=== PATIENT | male | born 1985 | race Caucasian/White ===

== ENCOUNTER 2018-03-19 18:55 | Emergency (ER) | payer MEDICAID, OTHER ==
[~2018-03-19] VITALS: Ht 188 cm; Wt 95.3 kg
[2018-03-19 19:00] VITALS: BP 161/91
--- OUTSIDE RECORDS SUMMARY | 2018-03-19 19:00 | XMS REPORT | Continuity of Care Document ---
Author Author [facility] Address Unknown Phone Unavailable Allergies There is no data. Medications There is no data. Problems Date Dx Coded Attending Type Code Diagnosis Diagnosed By 05/14/2011 RUTH JENSEN DO 465.9 UPPER RESPIRATORY INFECTION 03/22/2013 RUTH JENSEN DO 466.0 BRONCHITIS, ACUTE Procedures Code Description [place] [address] STREP A (IN-HOUSE) 03/22/2013 Results Test Result Range CULTURE, ANAEROBIC AND AEROBIC - 11/27/17 14:57 CULTURE, ANAEROBIC BACTERIA W/GRAM STAIN SEE NOTE NRG CULTURE, AEROBIC BACTERIA SEE NOTE NRG Encounters ACCT No. Visit Date/Time Discharge Status Pt. Type Provider Facility Loc./Unit Complaint [id number] 03/22/2013 13:48:00 03/22/2013 23:59:59 [place] [id number] 11/27/2017 13:40:00 11/27/2017 23:59:59 CLS Outpatient AUBREE VU APRN [facility] [id number] 11/27/2017 13:40:00 Document Registration [email or web address] 04/02/2013 11:11:48 ACT Document Registration
--- OUTSIDE RECORDS SUMMARY | 2018-03-19 19:00 | XMS REPORT ---
Author Author LORA CANO [facility] Address [address] [place] [address] Care Team Providers Care Postal Clerk Name Role Phone LORA CANO Unavailable PROBLEMS Type Condition ICD9-CM Code EYW55-AT Code Onset Dates Condition Status SNOMED Code Problem Acute upper respiratory infections of unspecified site 465.9 Active 71457333 Problem Acute bronchitis 466.0 Active 29936833 ALLERGIES No Known Allergies ENCOUNTERS Encounter Location Date Diagnosis [facility] [id number] [place] [address] [id number] Nov, Cutaneous abscess of left upper extremity L02.[address] [id number] Nov, Spider bite wound, accidental or unintentional, initial encounter T63.301A and Cutaneous abscess of left upper extremity L02.414 [facility] [id number] [place] [address] [phone] Jul, [facility] [id number] [place] [address] [phone] Jul, [facility] [id number] [place] [address] [id number] May, [facility] [id number] [place] [address] [phone] May, [facility] [id number] [place] [address] [phone] Jan, [facility] [id number] [place] [address] [phone] Jan, [facility] [id number] [place] [address] [phone] Feb, [facility] [address] [phone] Feb, [facility] [address] [id number] [place] [phone] Apr, IMMUNIZATIONS No Known Immunizations SOCIAL HISTORY Never Assessed REASON FOR VISIT Abscess f/u left forearm. Jalen LAFLEUR PLAN OF CARE Activity Details Follow Up prn Reason: VITAL SIGNS Height 73 in 2017-11-30 Weight 202 lbs 2017-11-30 Temperature 96.9 degrees Fahrenheit 2017-11-30 Heart Rate 90 bpm 2017-11-30 Respiratory Rate 18 2017-11-30 BMI 26.65 kg/m2 2017-11-30 Blood pressure systolic 140 mmHg 2017-11-30 Blood pressure diastolic 80 mmHg 2017-11-30 MEDICATIONS Medication Instructions Dosage Frequency Start Date End Date Duration Status Albuterol Sulfate 90 mcg/actuation 2 puffs by Inhalation route every 4-6 hours as needed PRN cough or wheezing Feb, Not-Taking Ibuprofen 800 MG Orally Three times a day as needed 1 tablet with food or milk as needed Nov, Active Dapsone 100 mg Orally Once a day 1 tablet 24h Nov, Nov, Active Bactrim DS 800-160 MG Orally Twice a day 1 tablet 12h Nov,Nov Active RESULTS No Results PROCEDURES No Known procedures INSTRUCTIONS MEDICATIONS ADMINISTERED No Known Medications MEDICAL (GENERAL) HISTORY Type Description Date Medical History Hx of MRSA
[2018-03-19] MEDS ORDERED: VANCOMYCIN INJECTION 1,500 MG in NS IV 500 ML 500 ML IV SCH (19:15)
[2018-03-19] MEDS ORDERED: HYDROcodone/APAP 5 MG/325 MG (LORTAB) TAB PO ONE (19:15)
[2018-03-19] MEDS ORDERED: cefTRIAXone FOR IV USE 1,000 MG in NS (IVPB) 50 ML IV ONE (19:15)
[2018-03-19] MEDS ORDERED: SULF-222 (19:20)
--- NOTE | 2018-03-19 19:29 | ED Upper Extremity ---
General Stated Complaint: FINGER LACERACTION Source: patient Exam Limitations: no limitations History of Present Illness Date Seen by Provider: Mar 19, 2018 Time Seen by Provider: 19:12 Initial Comments To ER per private vehicle with reports of a right pointer finger pain. He states that on Thursday of this past week he got a splinter into the right pointer finger. He was then seen at [facility] last night, received an injection of antibiotics and something for pain, had a nerve block done on his finger and then incision and drainage. He is unsure whether or not they got any pus out of this. They gave him Bactrim and Ultram, he does use the Ultram and states that the swelling has increased. He then went back to [facility] today and states "they had a new jus there, I got frustrated so I just left". Denies fevers or chills. He reports pain traveling from the pointer finger all the way up to the axilla. Onset: just prior to arrival Severity: moderate Pain/Injury Location: right 2nd finger Method of Injury: other (splinter) Modifying Factors: Worse With Movement Allergies and Home Medications Allergies Coded Allergies: No Known Drug Allergies (Unverified , 03/19/18) Patient Home Medication List Home Medication List Reviewed: Yes Review of Systems Constitutional: see HPI; No chills, No fever EENTM: see HPI Respiratory: no symptoms reported Cardiovascular: no symptoms reported Genitourinary: no symptoms reported Musculoskeletal: see HPI Skin: see HPI Psychiatric/Neurological: No Symptoms Reported Past [place]-Wckxfc-Sextde Hx Patient Social History Recent Foreign Travel: No Contact w/Someone Who Travel: No Physical Exam Vital Signs Vital Signs - First Documented 03/19/18 19:00 Temp 98.2 Pulse 90 Resp 18 B/P (MAP) 161/91 (114) Pulse Ox 99 O2 Delivery Room Air Capillary Refill : Height, Weight, BMI Height: '" Weight: lbs. oz. kg; BMI Method: General Appearance: WD/WN, no apparent distress HEENT: PERRL/EOMI, normal ENT inspection Respiratory: no respiratory distress, no accessory muscle use Shoulder: normal inspection, non-tender Elbow/Forearm: normal inspection, non-tender Wrist: Yes normal inspection, Yes non-tender Hand: Right, limited ROM (DrRae there is circumferential swelling and erythema about the proximal phalanx right pointer finger. Over the palmar surface there is a 0.5 cm open area which I would presume is from the incision last night. There is some swelling proximal to this to the mid metacarpal. There is no visualized lymphangitis. There are no palpable axillary lymph nodes though he does report significant tenderness to the right axilla.) Neurologic/Psychiatric: alert, oriented x 3, other (agitated) Skin: normal color, warm/dry Progress/Results/Core Measures Results/Orders Lab Results Laboratory Tests Test 03/19/18 19:25 Range/Units White Blood Count 14.5 H 4.3-11.0 10^3/uL Red Blood Count 4.69 4.35-5.85 10^6/uL Hemoglobin 14.3 13.3-17.7 G/DL Hematocrit 40 40-54 % Mean Corpuscular Volume 86 80-99 FL Mean Corpuscular Hemoglobin 31 25-34 PG Mean Corpuscular Hemoglobin Concent 35 32-36 G/DL Red Cell Distribution Width 12.7 10.0-14.5 % Platelet Count 265 130-400 10^3/uL Mean Platelet Volume 10.6 H 7.4-10.4 FL Neutrophils (%) (Auto) 76 H 42-75 % Lymphocytes (%) (Auto) 13 12-44 % Monocytes (%) (Auto) 10 0-12 % Eosinophils (%) (Auto) 1 0-10 % Basophils (%) (Auto) 0 0-10 % Neutrophils # (Auto) 11.0 H 1.8-7.8 X 10^3 Lymphocytes # (Auto) 1.8 1.0-4.0 X 10^3 Monocytes # (Auto) 1.4 H 0.0-1.0 X 10^3 Eosinophils # (Auto) 0.2 0.0-0.3 10^3/uL Basophils # (Auto) 0.1 0.0-0.1 10^3/uL Neutrophils % (Manual) 75 % Lymphocytes % (Manual) 17 % Monocytes % (Manual) 5 % Eosinophils % (Manual) 0 % Basophils % (Manual) 0 % Band Neutrophils 3 % Blood Morphology Comment NORMAL Sodium Level 138 135-145 MMOL/L Potassium Level 3.6 3.6-5.0 MMOL/L Chloride Level 106 98-107 MMOL/L Carbon Dioxide Level 21 21-32 MMOL/L Anion Gap 11 5-14 MMOL/L Blood Urea Nitrogen 15 7-18 MG/DL Creatinine 1.08 0.60-1.30 MG/DL Estimat Glomerular Filtration Rate > 60 BUN/Creatinine Ratio 14 Glucose Level 104 70-105 MG/DL Calcium Level 9.2 8.5-10.1 MG/DL Corrected Calcium 9.0 8.5-10.1 MG/DL Total Bilirubin 0.6 0.1-1.0 MG/DL Aspartate Amino Transf (AST/SGOT) 45 H 5-34 U/L Alanine Aminotransferase (ALT/SGPT) 34 0-55 U/L Alkaline Phosphatase 84 40-136 U/L Total Protein 7.4 6.4-8.2 GM/DL Albumin 4.3 3.2-4.5 GM/DL My Orders Orders - NAM KRISHNAMURTHY APRN Cbc With Automated Diff (03/19/18 19:05) Comprehensive Metabolic Panel (03/19/18 19:05) Iv Heplock-Insert (Order) (03/19/18 19:05) Wound Culture (03/19/18 19:05) Blood Culture (03/19/18 19:05) Hydrocodone/Apap 5/325 Tablet (Lortab 5 (03/19/18 19:15) Ceftriaxone For Iv Use (Rocephin For I (03/19/18 19:15) Vancomycin Injection (Vancomycin Injecti (03/19/18 19:15) Manual Differential (03/19/18 19:25) Meropenem (Merrem 1000 Mg) (03/19/18 19:45) Lidocaine 2% Injection 20 Ml (Xylocaine (03/19/18 19:45) Medications Given in ED Vital Signs/I&O 03/20/18 00:00 Intake Total 4 ml Balance 4 ml Departure Communication (Admissions) Patient initially refused blood draw that he would agree to an IV start for antibiotics. After much discussion I advised him that he really needed blood work done to evaluate white blood cells and kidney function prior to initiating antibiotics. He is very reluctant at first but after conversation with his girlfriend it boils down to she just started using methamphetamine again and does not want me to run a drug screen, he's recenlty started using methamphetamine again and states "im not proud of it". I advised him that running blood work for drug evaluation would not change my plan of care so there is no point in running drug screen. He also states that he would be unwilling to stay in the hospital for admission but would be willing to come back for outpatient antibiotics twice a day as he had offered to him earlier today at [facility] before he left. I then spoke with JOSE Fitzgerald at [facility] who agrees to write orders for outpatient antibiotics twice a day with the IV to be removed in between dosing if the patient is agreeable to these conditions. 2004- meropenem had been started for about 2 minutes, I was going to do incision and drainage of the finger with a nerve block. Patient states "man I'm sorry I was such a douche to you guys earlier" and I responded that it's okay, I understood that he told me he was ashamed of the methamphetamine use but that does not affect the care that he needs here in the emergency room for his finger infection. He then became irate and states "take that shit out of me!" Pointing to his IV and "I aint letting you fucking cut on on me!" . IV was removed, meropenem was stopped and patient left in a haste slamming doors on his way out. Impression Primary Impression: Cellulitis of finger Qualified Codes: L03.011 - Cellulitis of right finger Additional Impression: Outbursts of explosive behavior Disposition: 07 AGAINST MEDICAL ADVICE Condition: Against Medical Advice Departure-Patient Inst. Referrals: NO,LOCAL PHYSICIAN (PCP/Family) Primary Care Physician NAM KRISHNAMURTHY APRN Mar 19, 2018 19:29
[2018-03-19 19:36] LABS: BASOPHILS # (AUTO) 0.1 10^3/uL (0.0-0.1); BASOPHILS % (AUTO) 0 % (0-10); EOSINOPHILS # (AUTO) 0.2 10^3/uL (0.0-0.3); EOSINOPHILS % (AUTO) 1 % (0-10); HEMATOCRIT 40 % (40-54); HEMOGLOBIN 14.3 G/DL (13.3-17.7); LYMPHOCYTES # (AUTO) 1.8 X 10^3 (1.0-4.0); LYMPHOCYTES % (AUTO) 13 % (12-44); MEAN CORPUSCULAR HEMOGLOBIN 31 PG (25-34); MEAN CORPUSCULAR HGB CONC 35 G/DL (32-36); MEAN CORPUSCULAR VOLUME 86 FL (80-99); MEAN PLATELET VOLUME 10.6 FL (7.4-10.4); MONOCYTES # (AUTO) 1.4 X 10^3 (0.0-1.0); MONOCYTES % (AUTO) 10 % (0-12); NEUTROPHILS % (AUTO) 76 % (42-75); PLATELET COUNT 265 10^3/uL (130-400); RED BLOOD COUNT 4.69 10^6/uL (4.35-5.85); RED CELL DISTRIBUTION WIDTH 12.7 % (10.0-14.5); WHITE BLOOD COUNT 14.5 10^3/uL (4.3-11.0)
[2018-03-19] MEDS ORDERED: MEROPENEM 1,000 MG in NS (IVPB) 100 ML IV ONE (19:45)
[2018-03-19] MEDS ORDERED: LIDOCAINE 2% 20 ML (XYLOCAINE) VIAL INJ ONE (19:45)
[2018-03-19 19:55] LABS: BAND NEUTROPHILS 3 %; BASOPHILS % (MANUAL) 0 %; EOSINOPHILS % (MANUAL) 0 %; LYMPHOCYTES % (MANUAL) 17 %; MONOCYTES % (MANUAL) 5 %; NEUTROPHILS % (MANUAL) 75 %; RBC MORPH NORMAL
[2018-03-19 20:09] LABS: ALANINE AMINOTRANSFERASE 34 U/L (0-55); ALBUMIN 4.3 GM/DL (3.2-4.5); ALKALINE PHOSPHATASE 84 U/L (40-136); BILIRUBIN,TOTAL 0.6 MG/DL (0.1-1.0); BUN/CREATININE RATIO 14; CALCIUM 9.2 MG/DL (8.5-10.1); CARBON DIOXIDE 21 MMOL/L (21-32); CHLORIDE 106 MMOL/L (98-107); CREATININE SERUM 1.08 MG/DL (0.60-1.30); GFR ESTIMATED > 60; GLUCOSE 104 MG/DL (70-105); POTASSIUM 3.6 MMOL/L (3.6-5.0); SODIUM 138 MMOL/L (135-145); TOTAL PROTEIN 7.4 GM/DL (6.4-8.2)
== END 2018-03-19 20:03 | disposition left against medical advice (07) ==
LOC: EDUNIT# 18:55 → ER 18:56
DX: L03.011 Cellulitis of right finger (principal); S61.210D Laceration without foreign body of right index finger without damage to nail, subsequent encounter; R45.4 Irritability and anger; W45.8XXD Other foreign body or object entering through skin, subsequent encounter
CPT/HCPCS: 36415; 80053; 85007; 85027; 87040; 87070; 87077; 87186; 87205

== ENCOUNTER 2018-04-27 20:37 | Emergency (ER) | payer MEDICAID ==
[~2018-04-27] VITALS: Ht 188 cm; Wt 90.7 kg
[~2018-04-27 20:37] MED LIST: SULF-222
--- OUTSIDE RECORDS SUMMARY | 2018-04-27 20:43 | XMS REPORT ---
Author Author MANISH CHAN Organization [facility] Address [address] [place] [address] Care Team Providers Care Information Security Officer Name Role Phone MANISH CHAN Unavailable PROBLEMS Type Condition ICD9-CM Code UER90-TX Code Onset Dates Condition Status SNOMED Code Problem Acute upper respiratory infections of unspecified site 465.9 Active 42048433 Problem Acute bronchitis 466.0 Active 31029085 ALLERGIES No Information ENCOUNTERS Encounter Location Date Diagnosis [facility] [id number] [place] [phone] Feb, [facility] [address] [id number] Nov, Cutaneous abscess of left upper extremity L02.414 [facility] [address] [id number] Nov, Spider bite wound, accidental or unintentional, initial encounter T63.301A and Cutaneous abscess of left upper extremity L02.414 [facility] [id number] [place] [address] [phone] Jul, [facility] [id number] [place] [address] [phone] Jul, [facility] [id number] [place] [address] [phone] May, [facility] [id number] [place] [address] [phone] May, [facility] [id number] [place] [address] [phone] Jan, [facility] [id number] [place] [address] [phone] Jan, [facility] [address] [id number] Feb, [facility] [address] [facility] [id number] [place] [phone] Feb, [facility] [address] [facility] [id number] [phone] Apr, IMMUNIZATIONS No Known Immunizations SOCIAL HISTORY Never Assessed REASON FOR VISIT PLAN OF CARE VITAL SIGNS MEDICATIONS Unknown Medications RESULTS No Results PROCEDURES No Known procedures INSTRUCTIONS MEDICATIONS ADMINISTERED No Known Medications MEDICAL (GENERAL) HISTORY Type Description Date Medical History Hx of MRSA
--- OUTSIDE RECORDS SUMMARY | 2018-04-27 20:43 | XMS REPORT | Continuity of Care Document ---
Author Author [facility] Address Unknown Phone Unavailable Allergies Active Description Code Type Severity Reaction Onset Reported/Identified Relationship to Patient Clinical Status Yes NO KNOWN DRUG ALLERGIES UNKNOWN NO KNOWN DRUG ALLERG Yes No Known Drug Allergies [id number] Drug Allergy Unknown N/A 03/19/2018 Medications Medication Packaging Start Date Stop Date Route Dosage Sig KETOROLAC VIAL INJ 30 MG/CC (TORADOL VIAL) MG 03/18/2018 03/18/2018 ONCE&2052 CEFTRIAXONE INJ 1 GM (ROCEPHIN) GM 03/18/2018 03/18/2018 ONCE&2052 TRAMADOL PAIN PACK TAB 50 MG (ULTRAM PAIN PACK) MG 03/18/2018 03/18/2018 ONCE&2117 KETOROLAC VIAL INJ 30 MG/CC (TORADOL VIAL) MG 03/19/2018 03/19/2018 PRN ONCE PROMETHAZINE VIAL INJ 25 MG/CC (PHENERGAN VIAL) MG 03/20/2018 03/20/2018 PRN ONCE MEPERIDINE 50MG TAB 50 MG (DEMEROL 50MG) MG 03/20/2018 03/20/2018 PRN ONCE NORMAL SALINE 250CC IV BAG INJ 0.9 % (NS 250CC IV BAG) ml 03/20/2018 03/20/2018 ONCE&0943 NORMAL SALINE 250CC IV BAG INJ 0.9 % (NS 250CC IV BAG) ml 03/20/2018 03/20/2018 ONCE&1910 Problems Date Dx Coded Attending Type Code Diagnosis Diagnosed By 05/14/2011 RUTH JESNEN DO 465.9 UPPER RESPIRATORY INFECTION 03/22/2013 RUTH JENSEN DO 466.0 BRONCHITIS, ACUTE 03/18/2018 Bria Evans A 681.00 CELLULITIS AND ABSCESS OF FINGER, UNSPECIFIED 03/18/2018 Bria Evans A A L03.011 CELLULITIS OF RIGHT FINGER 03/19/2018 Amilcar Chand 681.00 CELLULITIS AND ABSCESS OF FINGER, UNSPECIFIED 03/19/2018 Amilcar Chand A L03.011 CELLULITIS OF RIGHT FINGER 03/19/2018 NAM KRISHNAMURTHY APRN Ot L03.011 CELLULITIS OF RIGHT FINGER 03/19/2018 NAM KRISHNAMURTHY APRN Ot R45.4 IRRITABILITY AND ANGER 03/19/2018 NAM KRISHNAMURTHY APRN Ot S61.210D LACERATION W/O FB OF R IDX FNGR W/O NICOLAS 03/19/2018 NAM KRISHNAMURTHY APRN Ot W45.8XXD OTH FOREIGN BODY OR OBJECT ENTERING THRO 03/20/2018 Panda Obrien W 681.00 CELLULITIS AND ABSCESS OF FINGER, UNSPECIFIED 03/20/2018 Panda Obrien W L02.519 CUTANEOUS ABSCESS OF UNSPECIFIED HAND 03/20/2018 Panda Obrien W 041.12 METHICILLIN RESISTANT STAPHYLOCOCCUS AUREUS INFECTION IN CONDITIONS CLASSIFIED ELSEWHERE AND OF UNSPECIFIED SITE 03/20/2018 Panda Obrien A 681.00 CELLULITIS AND ABSCESS OF FINGER, UNSPECIFIED 03/20/2018 Panda Obrien W B95.62 METHICILLIN RESIS STAPH INFCT CAUSING DISEASES CLASSD ELSWHR 03/20/2018 Panda Obrien A L02.511 CUTANEOUS ABSCESS OF RIGHT HAND 03/20/2018 Tima Obrienlas A 681.00 CELLULITIS AND ABSCESS OF FINGER, UNSPECIFIED 03/20/2018 Panda Obrien A L02.511 CUTANEOUS ABSCESS OF RIGHT HAND 03/20/2018 Tima Obrienlas A 681.00 CELLULITIS AND ABSCESS OF FINGER, UNSPECIFIED 03/20/2018 Panda Obrien A L02.511 CUTANEOUS ABSCESS OF RIGHT HAND 03/22/2018 NAM KRISHNAMURTHY APRN Ot L03.011 CELLULITIS OF RIGHT FINGER 03/22/2018 NAM KRISHNAMURTHY APRN Ot R45.4 IRRITABILITY AND ANGER 03/22/2018 NAM KRISHNAMURTHY APRN Ot S61.210D LACERATION W/O FB OF R IDX FNGR W/O NICOLAS 03/22/2018 NAM KRISHNAMURTHY APRN Ot W45.8XXD OTH FOREIGN BODY OR OBJECT ENTERING THRO 03/22/2018 MARCO GARDNER A 681.00 CELLULITIS AND ABSCESS OF FINGER, UNSPECIFIED 03/22/2018 MARCO GARDNER L02.511 CUTANEOUS ABSCESS OF RIGHT HAND Procedures Code Description [place] [address] STREP A (IN-HOUSE) 03/22/2013 Results Test Result Range CULTURE, ANAEROBIC AND AEROBIC - 11/27/17 14:57 CULTURE, ANAEROBIC BACTERIA W/GRAM STAIN SEE NOTE NRG CULTURE, AEROBIC BACTERIA SEE NOTE NRG Gram stain microscopy - 03/19/18 19:02 Gram stain microscopy No bacteria seen NRG Bacteria identification in wound by culture - 03/19/18 19:02 Bacteria identification in wound by culture [id number] NRG FREE TEXT EXTERNAL RML SENT SENSITIVITY REPORT 03/22 11:05 NRG QUANTITY OF GROWTH Rare NRG FREE TEXT ENTRY 2 FINAL REPORT 03/23/18 09:05 NRG RML Sensitivity Panel - 03/19/18 19:02 Oxacillin susceptibility test by minimum inhibitory concentration R NRG Clindamycin susceptibility test by minimum inhibitory concentration <= NRG Erythromycin susceptibility test by minimum inhibitory concentration > NRG Trimethoprim/sulfamethoxazole susceptibility test by minimum inhibitoryconcentration S NRG Vancomycin susceptibility test by minimum inhibitory concentration 1 NRG Levofloxacin susceptibility test by minimum inhibitory concentration <= NRG Rifampin susceptibility test by minimum inhibitory concentration <= NRG Cefazolin susceptibility test by minimum inhibitory concentration > NRG Linezolid susceptibility test by minimum inhibitory concentration < = NRG Penicillin G susceptibility test by minimum inhibitory concentration > NRG Minocycline susc LIZETH <= NRG Complete blood count (CBC) with automated white blood cell (WBC) differential - 03/19/18 19:25 Blood leukocytes automated count (number/volume) 14.5 10*3/uL 4.3-11.0 Blood erythrocytes automated count (number/volume) 4.69 10*6/uL 4.35-5.85 Venous blood hemoglobin measurement (mass/volume) 14.3 g/dL 13.3-17.7 Blood hematocrit (volume fraction) 40 % 40-54 Automated erythrocyte mean corpuscular volume 86 [foz_us] 80-99 Automated erythrocyte mean corpuscular hemoglobin (mass per erythrocyte) 31 pg 25-34 Automated erythrocyte mean corpuscular hemoglobin concentration measurement ( mass/volume) 35 g/dL 32-36 Automated erythrocyte distribution width ratio 12.7 % 10.0-14.5 Automated blood platelet count (count/volume) 265 10*3/uL 130-400 Automated blood platelet mean volume measurement 10.6 [foz_us] 7.4-10.4 Automated blood neutrophils/100 leukocytes 76 % 42-75 Automated blood lymphocytes/100 leukocytes 13 % 12-44 Blood monocytes/100 leukocytes 10 % 0-12 Automated blood eosinophils/100 leukocytes 1 % 0-10 Automated blood basophils/100 leukocytes 0 % 0-10 Blood neutrophils automated count (number/volume) 11.0 10*3 1.8-7.8 Blood lymphocytes automated count (number/volume) 1.8 10*3 1.0-4.0 Blood monocytes automated count (number/volume) 1.4 10*3 0.0-1.0 Automated eosinophil count 0.2 10*3/uL 0.0-0.3 Automated blood basophil count (count/volume) 0.1 10*3/uL 0.0-0.1 Blood manual differential performed detection - 03/19/18 19:25 Blood monocytes/100 leukocytes 5 % NRG Manual blood segmented neutrophils/100 leukocytes 75 % NRG Blood band neutrophils/100 leukocytes 3 % NRG Manual blood lymphocytes/100 leukocytes 17 % NRG Manual eosinophils/100 leukocytes in nose 0 % NRG Manual blood basophils/100 leukocytes 0 % NRG Blood erythrocyte morphology finding identification NORMAL NR Comprehensive metabolic panel - 03/19/18 19:25 Serum or plasma sodium measurement (moles/volume) 138 mmol/L 135-145 Serum or plasma potassium measurement (moles/volume) 3.6 mmol/L 3.6-5.0 Serum or plasma chloride measurement (moles/volume) 106 mmol/L 98-107 Carbon dioxide 21 mmol/L 21-32 Serum or plasma anion gap determination (moles/volume) 11 mmol/L 5-14 Serum or plasma urea nitrogen measurement (mass/volume) 15 mg/dL 7-18 Serum or plasma creatinine measurement (mass/volume) 1.08 mg/dL 0.60-1.30 Serum or plasma urea nitrogen/creatinine mass ratio 14 NRG Serum or plasma creatinine measurement with calculation of estimated glomerular filtration rate > NRG Serum or plasma glucose measurement (mass/volume) 104 mg/dL 70-105 Serum or plasma calcium measurement (mass/volume) 9.2 mg/dL 8.5-10.1 Serum or plasma total bilirubin measurement (mass/volume) 0.6 mg/dL 0.1-1.0 Serum or plasma alkaline phosphatase measurement (enzymatic activity/volume) 84 U/L 40-136 Serum or plasma aspartate aminotransferase measurement (enzymatic activity/ volume) 45 U/L 5-34 Serum or plasma alanine aminotransferase measurement (enzymatic activity/volume ) 34 U/L 0-55 Serum or plasma protein measurement (mass/volume) 7.4 g/dL 6.4-8.2 Serum or plasma albumin measurement (mass/volume) 4.3 g/dL 3.2-4.5 CALCIUM CORRECTED 9.0 mg/dL 8.5-10.1 Bacterial blood culture - 03/19/18 19:25 Bacterial blood culture NG NRG Bacterial blood culture - 03/19/18 19:41 Bacterial blood culture NG NRG CBC with Auto Diff - 03/19/18 23:45 Baso% 0.30 % 0.00-2.50 Eos 0.4 K/uL 0.0-0.7 Eos% 2.3 % 0.0-7.0 Hct 41.5 % 42.0-52.0 Hgb 14.4 g/dL 14.0-17.0 Lym 1.75 K/uL 0.60-3.40 Lym% 10.1 % 10.0-50.0 MCH 30.5 pg 27.0-31.2 MCHC 34.7 g/dL 32.0-36.0 MCV 87.9 fL 80.0-97.0 [place]% 10.6 % 0.0-12.0 MPV 10.5 fL 7.4-10.0 [place]% 76.7 % 37.0-80.0 Plt 271 K/uL 150-400 RBC 4.72 M/uL 4.20-5.40 RDW 12.5 % 11.6-14.8 WBC 17.25 K/uL 5.00-10.00 [place] 13.21 K/uL 2.00-6.90 [place] 1.8 K/uL 0.0-0.9 Baso 0.1 K/uL 0.0-0.2 Other Culture - 03/19/18 23:45 PRELIM CULTURE RESULTS Abundant Gram Positive LIZETH / ID to Follow MEDIA PLATED Setup at 00:17 on 03/20/2018 Sensi - 03/19/18 23:45 FINAL CULTURE RESULTS Methicillin Resistant Staphylococcus aureus ( Isolate 1) Ampicillin/Sulbactam 16/8 Ampicillin >8 Amoxicillin/K Clavulanate >4/2 Ceftriaxone <=8 Clindamycin <=0.5 Cefoxitin Screen >4 Ciprofloxacin <=1 Daptomycin <=0.5 Erythromycin >4 Nitrofurantoin <=32 Gentamicin <=4 Gentamicin Synergy Screen N/R Inducible Clindamycin <=4/0.5 Levofloxacin <=1 Linezolid 4 Moxifloxacin <=0.5 Oxacillin >2 Penicillin >8 Rifampin <=1 Streptomycin Synergy N/R Synercid <=0.5 Trimethoprim/ Sulfamethoxazole <=0.5/9.5 Tetracycline <=4 Vancomycin 1 BMP - 03/20/18 10:22 Anion Gap 14 6-14 BUN 15 mg/dL 5-25 Calcium 8.9 mg/dL 8.3-10.4 Chloride 106 mmol/L 95-114 CO2 21 mEq/L 22-33 Creat 1.13 mg/dL 0.50-1.50 eGFR 76 mL/min/1.73m2 >59 Glucose 108 mg/dL 70-110 Osmo 284 280-295 Potassium 3.9 mmol/L 3.5-5.3 Sodium 137 mmol/L 134-148 Encounters ACCT No. Visit Date/Time Discharge Status Pt. Type Provider Facility Loc./Unit Complaint [id number] 03/22/2013 13:48:00 03/22/2013 23:59:59 [place] [id number] 11/27/2017 13:40:00 11/27/2017 23:59:59 CLS Outpatient AUBREE VU APRN [facility] [id number] 11/27/2017 13:40:00 Document Registration [id number] 04/02/2013 11:11:48 ACT Document Registration [id number] 03/19/2018 18:56:00 03/19/2018 20:03:00 DIS Emergency NAM KRISHNAMURTHY APRN [facility] ER FINGER LACERACTION [id number] 03/22/2018 20:00:00 03/22/2018 21:00:00 DIS Outpatient KENDRA [facility] ER [id number] 03/20/2018 18:41:00 03/20/2018 20:55:00 DIS Outpatient Panda Obrien [id number] 03/20/2018 09:35:00 03/20/2018 12:13:00 DIS Outpatient Panda Obrien [id number] 03/19/2018 22:34:00 03/20/2018 02:15:00 DIS Outpatient Panda Obrien [facility] ER [id number] 03/19/2018 14:56:00 03/19/2018 15:40:00 DIS Outpatient Amilcar Chand [facility] ER [id number] 03/18/2018 20:32:00 03/18/2018 21:35:00 DIS [place] [facility] [place] [id number] 03/18/2018 20:53:29 Document Registration
--- NOTE | 2018-04-27 22:15 | NUR ---
pt refused flu swab. min ang notified.
[2018-04-27] MEDS ORDERED: ONDANSETRON 4 MG (ZOFRAN) ORAL DISSOLVE TAB SL STA (23:03)
[2018-04-27] MEDS ORDERED: IBUPROFEN 800 MG (MOTRIN) TAB PO STA (23:03)
--- NOTE | 2018-04-27 23:13 | ED Cough/URI ---
General Chief Complaint: Cough/Cold/Flu Symptoms Stated Complaint: BODY ACHES/HEADACHE Nursing Triage Note: bodyache, fever Source: patient, other (friend) Exam Limitations: no limitations History of Present Illness Date Seen by Provider: Apr 27, 2018 Time Seen by Provider: 22:00 Allergies and Home Medications Allergies Coded Allergies: No Known Drug Allergies (Unverified , 03/19/18) Home Medications Ondansetron 8 Mg Tab.rapdis, 8 MG PO Q6H PRN for NAUSEA/VOMITING Prescribed by: RONALDO HAMILTON on 04/27/182321 Oseltamivir Phosphate 75 Mg Capsule, 75 MG PO BID Prescribed by: RONALDO HAMILTON on 04/27/182321 Sulfamethoxazole/Trimethoprim 1 Each Tablet, 1 EACH PO BID Prescribed by: RONALDO HAMILTON on 04/27/182321 Past Axddxfs-Keapow-Jvgdll Hx Patient Social History Alcohol Use: Occasionally Uses Recreational Drug Use: Yes Drug of Choice: meth Smoking Status: Current Everyday Smoker Type Used: Cigarettes 2nd Hand Smoke Exposure: Yes Recent Foreign Travel: No Contact w/Someone Who Travel: No Recent Infectious Disease Expo: No Recent Hopitalizations: No Immunizations Up To Date Tetanus Booster (TDap): Unknown Seasonal Allergies Seasonal Allergies: No Past Medical History Surgeries: Yes Tonsillectomy Respiratory: No Cardiac: No Neurological: No Genitourinary: No Gastrointestinal: No Musculoskeletal: No Endocrine: No HEENT: No Cancer: No Psychosocial: No Integumentary: Yes Recent Skin Changes Blood Disorders: No Physical Exam Vital Signs - First Documented 04/27/18 22:10 Temp 101.9 Pulse 103 Resp 18 B/P (MAP) 113/63 (80) Pulse Ox 96 O2 Delivery Room Air Capillary Refill : Less Than 3 Seconds Height: 6'2.00" Weight: 200lbs. oz. 90.194801rl; BMI Method:Stated Progress/Results/Core Measures Suspected Sepsis Recent Fever Within 48 Hours: Yes Infection Criteria Present: None New/Unexplained Altered Menta: No Sepsis Screen: No Definite Risk SIRS Temperature:101.9 Pulse: 103 Respiratory Rate: 18 Blood Pressure 113 /63 Mean: 80 Results/Orders Micro Results Microbiology 04/27/18 Influenza Types A,B Antigen (LIZETH) - Final, Complete My Orders Orders - RONALDO HAMILTON Influenza A And B Antigens (04/27/18 22:09) Ibuprofen Tablet (Motrin Tablet) (04/27/18 23:03) Ondansetron Oral Dissolve Tab (Zofran (04/27/18 23:03) Vital Signs/I&O 04/27/18 04/27/18 22:10 22:10 Temp 101.9 Pulse 103 Resp 18 B/P (MAP) 113/63 (80) Pulse Ox 96 O2 Delivery Room Air Room Air Capillary Refill : Less Than 3 Seconds Blood Pressure Mean: 80 Departure Impression Primary Impression: Influenza-like symptoms Additional Impression: Cellulitis of arm, right Disposition: 01 HOME, SELF-CARE Condition: Improved Departure-Patient Inst. Decision time for Depature: 23:20 Referrals: NO,LOCAL PHYSICIAN (PCP/Family) Primary Care Physician Patient Instructions: Fever, Adult (DC), Flu, Adult (DC) Add. Discharge Instructions: All discharge instructions reviewed with patient and/or family. Voiced understanding. Medications as instructed. Tylenol extra strength over-the- counter as directed for pain or fever. Ibuprofen 800 mg by mouth every 8 hours as needed for pain or fever. Push fluids. Follow-up with your family practitioner for recheck as an outpatient in the next 1-2 days, call tomorrow morning for appointment time. Return to the emergency department for worsened symptoms or any other concerns. Scripts Ondansetron (Ondansetron Odt) 8 Mg Tab.rapdis 8 MG PO Q6H PRN for NAUSEA/VOMITING, #10 TAB 0 Refills Prov: RONALDO HAMILTON 04/27/18 Oseltamivir Phosphate (Oseltamivir Phosphate) 75 Mg Capsule 75 MG PO BID, #10 CAP 0 Refills Prov: RONALDO HAMILTON 04/27/18 Sulfamethoxazole/Trimethoprim (Sulfamethoxazole-Tmp Ds Tablet) 1 Each Tablet 1 EACH PO BID, #14 TAB 0 Refills Prov: RONALDO HAMILTON 04/27/18 Work/School Note: Local Medical Staff Listing, Work Release Form Date Seen in the Emergency Department: Apr 27, 2018 Return to Work: Apr 29, 2018 Restrictions: Return-No Fever (24hrs), Return-No Vomiting(24hrs) RONALDO HAMILTON Apr 27, 2018 23:12
[2018-04-27] MEDS ORDERED: SULF-222 PO (23:22)
[2018-04-27] MEDS ORDERED: OSEL75CA15 PO (23:22)
[2018-04-27] MEDS ORDERED: ONDA8TAB13 PO (23:22)
[2018-04-27 23:32] VITALS: BP 113/63
== END 2018-04-27 23:38 | disposition home or self-care (01) ==
LOC: EDUNIT# 20:37 → ER 20:39
DX: R50.9 Fever, unspecified (principal); R51 Headache; R52 Pain, unspecified; L03.113 Cellulitis of right upper limb; F17.210 Nicotine dependence, cigarettes, uncomplicated; Z90.89 Acquired absence of other organs
CPT/HCPCS: 87804

== ENCOUNTER 2020-02-06 08:12 | Emergency (ER) | payer SELFPAY ==
[~2020-02-06] VITALS: Ht 187 cm; Wt 95.2 kg
[~2020-02-06 08:12] MED LIST changes: +ONDA8TAB13 PO; +OSEL75CA15 PO; +SULF-222 PO
[2020-02-06] MEDS ORDERED: TETRACAINE 0.5% OPHTH SOLN 4 ML BTL (SINGLE DOSE ONLY) ONE (09:34)
[2020-02-06] MEDS ORDERED: FLUORESCEIN (FLUOR-I-STRIPS) 1 MG STRP ONE (09:34)
--- NOTE | 2020-02-06 09:44 | ED EENT ---
History of Present Illness General Chief Complaint: Eye Problems Stated Complaint: R EYE INFECTION Nursing Triage Note: pt presents to ed from home with complaints of r eye pain after being unable to remove contact x 2 days. Source: patient Exam Limitations: no limitations History of Present Illness Date Seen by Provider: Feb 06, 2020 Time Seen by Provider: 09:29 Initial Comments Patient presents ER by private conveyance with chief complaint that for the past week he's been wearing contacts and having increasing redness, irritation in his right eye with some discharge. He says for the past 2 days he has not been able to contact out. He is waiting on his eyeglasses to come in. He does not usually follow with a noncontrast but he got these from [address] [place] [address]. No fever chills nausea vomiting. Allergies and Home Medications Allergies Coded Allergies: No Known Drug Allergies (Unverified , 03/19/18) Home Medications Ondansetron 8 Mg Tab.rapdis, 8 MG PO Q6H PRN for NAUSEA/VOMITING Prescribed by: RONALDO HAMILTON on 04/27/182321 Oseltamivir Phosphate 75 Mg Capsule, 75 MG PO BID Prescribed by: RONALDO HAMILTON on 04/27/182321 Sulfamethoxazole/Trimethoprim 1 Each Tablet, 1 EACH PO BID Prescribed by: RONALDO HAMILTON on 04/27/18 232 Patient Home Medication List Home Medication List Reviewed: Yes Review of Systems Review of Systems Constitutional: No chills, No diaphoresis Eyes: Denies Blindness; Blurred Vision Ears: Denies Dizziness, Denies Pain Nose: denies clots, denies congestion Mouth: denies clots, denies loose teeth All Other Systems Reviewed Negative Unless Noted: Yes Past Wqjcolh-Kuzniq-Fdzxrv Hx Patient Social History Alcohol Use: Denies Use Recreational Drug Use: No Drug of Choice: meth Smoking Status: Current Everyday Smoker Type Used: Cigarettes 2nd Hand Smoke Exposure: Yes Recent Foreign Travel: No Contact w/Someone Who Travel: No Recent Infectious Disease Expo: No Recent Hopitalizations: No Physical Abuse: No Sexual Abuse: No Mistreated: No Fear: No Immunizations Up To Date Tetanus Booster (TDap): Unknown Seasonal Allergies Seasonal Allergies: No Past Medical History Surgeries: Yes Tonsillectomy Respiratory: No Cardiac: No Neurological: No Genitourinary: No Gastrointestinal: No Musculoskeletal: No Endocrine: No HEENT: No Cancer: No Psychosocial: No Integumentary: Yes Recent Skin Changes Blood Disorders: No Family Medical History No Pertinent Family Hx Physical Exam Vital Signs Vital Signs - First Documented 02/06/20 08:30 Temp 36.8 Pulse 82 Resp 18 B/P (MAP) 149/85 (106) Pulse Ox 98 Height, Weight, BMI Height: 6'2.00" Weight: 200lbs. oz. 90.615916ne; 27.00 BMI Method:Stated General Appearance: WD/WN, mild distress Eyes: right eye conjunctival inflammation (erythema, purulence and photosensitivity), right eye other (fluorescein stain does not show any abrasion. Contact lens was removed.); left eye normal inspection; bilateral eye PERRL, bilateral eye EOMI Ears: bilateral ear auricle normal, bilateral ear canal normal Mouth/Throat: normal mouth inspection, pharynx normal Neck: full range of motion, supple, normal inspection Cardiovascular: normal peripheral pulses, regular rate, rhythm, no edema Respiratory: no respiratory distress, no accessory muscle use Neurologic/Psychiatric: alert, normal mood/affect, oriented x 3 Progress/Results/Core Measures Results/Orders My Orders Orders - DEREJE MIGUEL Tetracaine 0.5% Ophth Mikaela Sdv (Tetracai (02/06/20 09:45) Fluorescein Strips (Wtalf-E-Ddbbwm) (02/06/20 09:45) Fluorescein Strips (Bnost-M-Jqoztf) (02/06/20 09:34) Tetracaine 0.5% Ophth Mikaela Sdv (Tetracai (02/06/20 09:34) Balanced Salt Irrigation Soln (Bss Irrig (02/06/20 10:00) Balanced Salt Irrigation Soln (Bss Irrig (02/06/20 09:51) Ketorolac Injection (Toradol Injection) (02/06/20 10:15) Medications Given in ED Current Medications Medications Dose Ordered Sig/Deepa Route Start Time Stop Time Status Last Admin Dose Admin Balanced Salt Solution 15 ml STK-MED ONCE .ROUTE 02/06/20 09:51 02/06/20 09:57 DC 02/06/20 09:59 15 ML Fluorescein Sodium 1 mg ONCE ONCE OU 02/06/20 09:45 02/06/20 09:46 DC 02/06/20 09:58 1 MG Tetracaine HCl 4 ml ONCE ONCE OU 02/06/20 09:45 02/06/20 09:46 DC 02/06/20 09:58 4 ML Vital Signs/I&O 02/06/20 08:30 Temp 36.8 Pulse 82 Resp 18 B/P (MAP) 149/85 (106) Pulse Ox 98 Blood Pressure Mean: 106 Progress Progress Note #1: Time: :43 Progress Note Plan to use tetracaine and fluorescein and get the contact removed. We'll then have him follow-up with optometry. We will discuss this with optometry for antibiotic with or without steroid. Progress Note #2: Time: :58 Progress Note We retrieved the contact lens and are now flushing the eye. We did discuss the case with Dr. Gregory, Optometry and he recommends sending the patient straight over and he will examine the eye before making a determination of appropriate course of therapy. Toradol for pain. 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 Decision time for Depature: 10:04 Referrals: NO,LOCAL PHYSICIAN (PCP/Family) Primary Care Physician Patient Instructions: Chemical Eye Injury (DC) Add. Discharge Instructions: You may keep the eye patched if that helps with pain. Go directly to Dr. Gregory's office at the above address. Tylenol 1000 mg every 8 hours as necessary for pain. The psychology professor will do the appropriate workup to discover any further injuries and how best to treat them as well as manage your pain. The numbing medicine will wear off in about one hour. All discharge instructions reviewed with patient and/or family. Voiced understanding. Work/School Note: Work Release Form Date Seen in the Emergency Department: Feb 06, 2020 Return to Work: Feb 07, 2020 Restrictions: No Restrictions DEREJE MIGUEL Feb 06, 2020 09:43
[2020-02-06] MEDS ORDERED: FLUORESCEIN (FLUOR-I-STRIPS) 1 MG STRP OU ONE (09:45)
[2020-02-06] MEDS ORDERED: TETRACAINE 0.5% OPHTH SOLN 4 ML BTL (SINGLE DOSE ONLY) OU ONE (09:45)
[2020-02-06] MEDS ORDERED: BSS 15 ML ONE (09:51)
[2020-02-06] MEDS ORDERED: BSS 15 ML IR ONE (10:00)
[2020-02-06] MEDS ORDERED: KETOROLAC 60 MG/2 ML VIAL IM ONE (10:15)
[2020-02-06 10:19] VITALS: BP 132/78
== END 2020-02-06 10:21 | disposition home or self-care (01) ==
LOC: EDUNIT# 08:12 → ER 08:13
DX: H44.001 Unspecified purulent endophthalmitis, right eye (principal); H18.821 Corneal disorder due to contact lens, right eye; F17.210 Nicotine dependence, cigarettes, uncomplicated
CPT/HCPCS: 99284

== ENCOUNTER 2020-02-29 07:39 | Emergency (ER) | payer SELFPAY ==
[~2020-02-29] VITALS: Ht 182 cm; Wt 90.0 kg
[2020-02-29 07:39] VITALS: BP 163/95
--- NOTE | 2020-02-29 07:43 | ED EENT ---
History of Present Illness General Stated Complaint: SINUS ISSUES History of Present Illness Date Seen by Provider: Feb 29, 2020 Time Seen by Provider: 07:43 Initial Comments 34-year-old male presents with chronic allergic rhinitis. Patient frequently clears his throat. Patient feels like his mucus is getting stuck in his throat causing the cough. Patient has had this on and off for quite some time. Patient reports he takes Claritin at this time. Patient reports he started Flonase and Mucinex and the mat past but they "just don't work for him" patient wants something to make it go away at this time. He does not have any fevers, chills, or other acute respiratory symptoms. Allergies and Home Medications Allergies Coded Allergies: No Known Drug Allergies (Unverified , 03/19/18) Home Medications Ondansetron 8 Mg Tab.rapdis, 8 MG PO Q6H PRN for NAUSEA/VOMITING Prescribed by: RONALDO HAMILTON on 04/27/182321 Oseltamivir Phosphate 75 Mg Capsule, 75 MG PO BID Prescribed by: RONALDO HAMILTON on 04/27/182321 Sulfamethoxazole/Trimethoprim 1 Each Tablet, 1 EACH PO BID Prescribed by: RONALDO HAMILTON on 04/27/182321 Patient Home Medication List Home Medication List Reviewed: Yes Review of Systems Review of Systems Constitutional: No chills, No fever Eyes: No Symptoms Reported Ears: No Symptoms Reported Nose: see HPI Mouth: see HPI Throat: see HPI Respiratory: cough, phlegm; No short of breath Cardiovascular: No chest pain, No palpitations Gastrointestinal: no symptoms reported Musculoskeletal: no symptoms reported Skin: no symptoms reported Past Lufouwt-Cgkmsw-Spjkot Hx Past Med/Social Hx: Reviewed Nursing Past Med/Soc Hx Patient Social History Drug of Choice: meth Type Used: Cigarettes 2nd Hand Smoke Exposure: Yes Recent Foreign Travel: No Contact w/Someone Who Travel: No Recent Hopitalizations: No Immunizations Up To Date Tetanus Booster (TDap): Unknown Seasonal Allergies Seasonal Allergies: No Past Medical History Surgeries: Yes Tonsillectomy Respiratory: No Cardiac: No Neurological: No Genitourinary: No Gastrointestinal: No Musculoskeletal: No Endocrine: No HEENT: No Cancer: No Psychosocial: No Integumentary: Yes Recent Skin Changes Blood Disorders: No Family Medical History No Pertinent Family Hx Physical Exam Vital Signs Vital Signs - First Documented 02/29/20 07:39 Temp 36.7 Pulse 68 Resp 16 B/P (MAP) 163/95 (117) Pulse Ox 98 O2 Delivery Room Air Height, Weight, BMI Height: 6'2.00" Weight: 200lbs. oz. 90.439472mw; 27.00 BMI Method:Stated General Appearance: WD/WN, no apparent distress Eyes: bilateral eye normal inspection, bilateral eye PERRL Mouth/Throat: other (posterior cobblestoning, mild erythema) Neck: supple Cardiovascular: normal peripheral pulses, regular rate, rhythm Respiratory: chest non-tender, lungs clear, normal breath sounds Gastrointestinal: non tender, soft Neurologic/Psychiatric: alert, normal mood/affect, oriented x 3 Skin: normal color, warm/dry Progress/Results/Core Measures Results/Orders Vital Signs/I&O 02/29/20 07:39 Temp 36.7 Pulse 68 Resp 16 B/P (MAP) 163/95 (117) Pulse Ox 98 O2 Delivery Room Air Progress Progress Note : Time: 08:03 Progress Note Patient is upset because he is wanting "something now" I discussed with him that he has chronic sinusitis that the initial treatments are given and be Flonase, Mucinex, allergic medication and nasal rinses. He can use honey for the cough as well as some other fjjj-zdm-vbgyixv medications. Discussed with him that these are the first steps and initial treatments. I commended due to the chronicity of it that he follows up with Dr. Wooten or other ENT for further evaluation. I also suggest he start Pepcid if there is a GERD component. Patient states that everything I mentioned he is tried and it just doesn't work for him. He doesn't have GERD. I once again indurated that this is initial treatments and the ER treatments and that he would like further recommendations she should follow-up with Dr. Wooten for further outpatient studies. Departure Impression Primary Impression: Rhinitis, allergic Qualified Codes: J30.2 - Other seasonal allergic rhinitis Additional Impression: Rhinitis, purulent, chronic Disposition: 01 HOME, SELF-CARE Condition: Stable Departure-Patient Inst. Referrals: LORA WOOTEN MD NO,LOCAL PHYSICIAN (PCP) Primary Care Physician Patient Instructions: [facility]AL [facility]., Seasonal Allergies (DC), Chronic Sinusitis Add. Discharge Instructions: Flonase or similar medication as directed on package Pepcid 20 mg daily Mucinex or similar mucolytic as directed on package daily Continue Claritin daily humidified air at night Work/School Note: Work Release Form Date Seen in the Emergency Department: Feb 29, 2020 Return to Work: Mar 01, 2020 EMERSON SUTTON DO Feb 29, 2020 07:43
== END 2020-02-29 08:07 | disposition home or self-care (01) ==
LOC: EDUNIT# 07:39 → ER 07:40
DX: J30.89 Other allergic rhinitis (principal); Z77.22 Contact with and (suspected) exposure to environmental tobacco smoke (acute) (chronic)
CPT/HCPCS: 99282

== ENCOUNTER 2021-03-18 02:53 | Emergency (ER) | payer SELFPAY ==
[~2021-03-18] VITALS: Ht 188 cm; Wt 99.8 kg
--- NOTE | 2021-03-18 03:09 | ED Integumentary General ---
General Stated Complaint: SORES ALL OVER Source: patient Exam Limitations: no limitations History of Present Illness Date Seen by Provider: Mar 18, 2021 Time Seen by Provider: 03:00 Initial Comments Patient is a 35-year-old male who presents to the emergency department today with a chief complaint of "sores" to his face, under his chin, on his hands. He states the majority of these started over the weekend. He complains of discomfort specifically under his chin. He states several of the wounds have "busted open" and drained fluid. He reports some blackish "stringy looking" material out of the wounds. He states he feels a little nauseous on the way up to the hospital. Denies fevers or chills. No recent upper respiratory sympto ms. He is a smoker. States that he has been told he has high blood pressure in the past. Is not a diabetic. Has been putting some triple antibiotic ointment on the wounds without any relief of symptoms. Has been told in the past that he has "MRSA". All other review of systems reviewed and negative except as stated Timing/Duration: week, getting worse Location: face, hands Modifying Factors: improves with other (triple antibiotic oitnment) Associated Symptoms: other (nausea) Allergies and Home Medications Allergies Coded Allergies: No Known Drug Allergies (Unverified , 03/19/18) Patient Home Medication List Home Medication List Reviewed: Yes Doxycycline Hyclate (Doxycycline Hyclate) 100 Mg Tablet, 100 MG PO BID Prescribed by: MARY GARNER on 03/18/21318 Mupirocin Calcium (Mupirocin) 15 Gm Cream..g., 15 GM TP TID Prescribed by: MARY GARNER on 03/18/21318 Ondansetron (Ondansetron Odt) 8 Mg Tab.rapdis, 8 MG PO Q6H PRN for NAUSEA/VOMITING Prescribed by: RONALDO HAMILTON on 04/27/182321 Oseltamivir Phosphate (Oseltamivir Phosphate) 75 Mg Capsule, 75 MG PO BID Prescribed by: RONALDO HAMILTON on 04/27/182321 Sulfamethoxazole/Trimethoprim (Sulfamethoxazole-Tmp Ds Tablet) 1 Each Tablet, 1 EACH PO BID Prescribed by: RONALDO HAMILTON on 04/27/182321 Review of Systems Review of Systems EENTM: no symptoms reported Respiratory: no symptoms reported Cardiovascular: no symptoms reported Gastrointestinal: nausea Genitourinary: no symptoms reported Musculoskeletal: no symptoms reported Skin: lesions Psychiatric/Neurological: No Symptoms Reported All Other Systems Reviewed Negative Unless Noted: Yes Past Engndne-Kpjota-Inklic Hx Immunizations Up To Date Tetanus Booster (TDap): Unknown Seasonal Allergies Seasonal Allergies: No Past Medical History Surgeries: Yes Tonsillectomy Respiratory: No Cardiac: No Neurological: No Genitourinary: No Gastrointestinal: No Musculoskeletal: No Endocrine: No HEENT: No Cancer: No Psychosocial: No Integumentary: Yes Recent Skin Changes Blood Disorders: No Family Medical History No Pertinent Family Hx Physical Exam Vital Signs Vital Signs - First Documented 03/18/21 02:58 Temp 36.3 Pulse 101 Resp 18 B/P (MAP) 160/85 (110) Pulse Ox 98 O2 Delivery Room Air Capillary Refill : General Appearance: WD/WN, no apparent distress HEENT: PERRL/EOMI Neck: normal inspection Cardiovascular: regular rate, rhythm (HR = 100) Respiratory: lungs clear, normal breath sounds, no respiratory distress, no accessory muscle use Extremities: normal range of motion, normal inspection Neurologic/Psychiatric: alert, normal mood/affect, oriented x 3 Skin: normal color, warm/dry, other (multiple areas of ulcerations to left hand (dorsum) and on left thumb; 3 areas to the face, Under chin, left cheek and jehovah's witness; also right ear. None of these areas are fluctuant/abscessed. no drainage. The lesion under the chin has about 3 cm area of surrounding erythema, it is indurated and tender to touch.) Skin Problem Character: erythema, tenderness Progress/Results/Core Measures Results/Orders Vital Signs/I&O 03/18/21 02:58 Temp 36.3 Pulse 101 Resp 18 B/P (MAP) 160/85 (110) Pulse Ox 98 O2 Delivery Room Air Progress Progress Note : Time: 03:42 Progress Note Called back into the room for concern for "something inside" the back part of his right earlobe. I re-examined this area - he has a crusted lesion on the anterior portion of the lobe, non fluctuant, non edematous. the posterior aspect was also not swollen or fluctuant. No palpable abnormality. no erythema, no LAD. He requested something stronger for pain than ibuprofen. I advised him I would not give narcotics for a skin infection. He was upset with this. I offered a dose of 600 or 800mg of ibuprofen. His significant other states she had some at home. Patient was discharged. Departure Impression Primary Impression: Folliculitis barbae Additional Impression: Dermatitis Disposition: 01 HOME, SELF-CARE Condition: Stable Departure-Patient Inst. Decision time for Depature: 03:12 Referrals: [facility] [place]LOCAL PHYSICIAN (PCP) Primary Care Physician Patient Instructions: Bacterial Folliculitis Add. Discharge Instructions: Use an antibacterial soap twice a day to all the affected areas. Apply the antibiotic ointment to the lesions, a thin layer, 3 times a day for 5 days. Take the antibiotics twice a day for 10 days. Use over the counter Ibuprofen 3 tablets (600mg) 3 times a day with food as needed for pain. Return to the ER for any worsening redness, swelling, high fever or other emergent concerning symptoms. Follow up with your primary care doctor. Scripts Doxycycline Hyclate (Doxycycline Hyclate) 100 Mg Tablet 100 MG PO BID, #20 TAB 0 Refills Prov: MARY GARNER MD 03/18/21 Mupirocin Calcium (Mupirocin) 15 Gm Cream..g. 15 GM TP TID for 5 Days, #15 GM Apply to affected areas 3 times a day for 5 days Prov: MARY GARNER MD 03/18/21 MARY GARNER MD Mar 18, 2021 03:09
[2021-03-18] MEDS ORDERED: DOXY100T2 PO (03:19)
[2021-03-18] MEDS ORDERED: MUPI15CR11 TP (03:19)
[2021-03-18 03:43] VITALS: BP 160/85
== END 2021-03-18 03:43 | disposition home or self-care (01) ==
LOC: EDUNIT# 02:53 → ER 02:55
DX: L73.9 Follicular disorder, unspecified (principal); L30.9 Dermatitis, unspecified; I10 Essential (primary) hypertension; Z86.14 Personal history of Methicillin resistant Staphylococcus aureus infection
CPT/HCPCS: 99281

== ENCOUNTER 2022-04-20 19:39 | Emergency (ER) | payer SELFPAY ==
[~2022-04-20] VITALS: Ht 187.9 cm; Wt 100.0 kg
[~2022-04-20 19:39] MED LIST changes: +DOXY100T2 PO; +MUPI15CR11 TP
[2022-04-20 19:42] VITALS: BP 131/91
--- NOTE | 2022-04-20 19:48 | ED Integumentary General ---
General Chief Complaint: Skin/Wound Problems Stated Complaint: ABSCESS IN LEFT EAR Source: patient Exam Limitations: no limitations History of Present Illness Date Seen by Provider: Apr 20, 2022 Time Seen by Provider: 19:44 Initial Comments 36 y/o male presents today with c/o painful abscess of left outer ear. Pt states he first noticed it 5-6 days ago, but today it became larger and more painful. Pt states he tried to open it with utility knife this evening, but just got a small amount of blood out of it. He denies fever, chills, facial swelling, body aches, headache. He denies any prior history of similar lesions. Timing/Duration: week, getting worse Location: face (left ear) Associated Symptoms: denies symptoms Allergies and Home Medications Allergies Coded Allergies: No Known Drug Allergies (Unverified , 03/19/18) Patient Home Medication List Home Medication List Reviewed: Yes Cephalexin (Cephalexin) 500 Mg Tablet, 500 MG PO TID Prescribed by: Joann Piña on 04/20/222013 Last Action: New Order Doxycycline Hyclate (Doxycycline Hyclate) 100 Mg Tablet, 100 MG PO BID Prescribed by: MARY GARNER on 03/18/21318 Mupirocin Calcium (Mupirocin) 15 Gm Cream..g., 15 GM TP TID Prescribed by: MARY GARNER on 03/18/21318 Ondansetron (Ondansetron Odt) 8 Mg Tab.rapdis, 8 MG PO Q6H PRN for NAUSEA/VOM ITING Prescribed by: RONALDO HAMILTON on 04/27/182321 Oseltamivir Phosphate (Oseltamivir Phosphate) 75 Mg Capsule, 75 MG PO BID Prescribed by: RONALDO HAMILTON on 04/27/182321 Sulfamethoxazole/Trimethoprim (Sulfamethoxazole-Tmp Ds Tablet) 1 Each Tablet, 1 EACH PO BID Prescribed by: RONALDO HAMILTON on 04/27/182321 Review of Systems Review of Systems Constitutional: no symptoms reported EENTM: ear pain; No ear discharge, No hearing loss, No nose congestion, No nose pain, No throat pain Skin: No change in color, No hx of skin cancer; lumps; No pruritus, No rash Endocrine: No Symptoms Reported Hematologic/Lymphatic: No Symptoms Reported Past Gqnvmtb-Yncslz-Boroqo Hx Immunizations Up To Date Tetanus Booster (TDap): Unknown First/Initial COVID19 Vaccinat: July 2020 Second COVID19 Vaccination Esau: July 2020 Seasonal Allergies Seasonal Allergies: No Past Medical History Surgeries: Yes Tonsillectomy Respiratory: No Cardiac: No Neurological: No Genitourinary: No Gastrointestinal: No Musculoskeletal: No Endocrine: No HEENT: No Cancer: No Psychosocial: No Integumentary: Yes Recent Skin Changes Blood Disorders: No Family Medical History No Pertinent Family Hx Physical Exam Vital Signs Vital Signs - First Documented 04/20/22 19:42 Temp 36.4 Pulse 87 Resp 16 B/P (MAP) 131/91 (104) Pulse Ox 96 O2 Delivery Room Air Capillary Refill : General Appearance: WD/WN, no apparent distress HEENT: TMs normal, pharynx normal, other (abscess of left tragus, without surrounding erythema or swelling) Neck: non-tender, supple, normal inspection Skin: normal color, warm/dry Skin Problem Location: other (left tragus) Skin Problem Character: abscess Lymphatic: no adenopathy Procedures/Interventions I&D : Site: left tragus Blade Size: 22 gauge needle I & D Procedure: betadine prep, Wound Packing (gauze 2x2 placed in left EAC ) Progress moderate amount of purulent discharge expressed with significant decrease in size of abscess Progress/Results/Core Measures Results/Orders My Orders Orders - JOANN PIÑA DIRECTOR OF LABORATORY OPERATIONS Ceftriaxone (Rocephin) (04/20/22 20:15) Lidocaine 1% Inj 20 Ml (Xylocaine 1% Inj (04/20/22 20:15) Acetaminophen Tablet/Caplet (Tylenol T (04/20/22 20:15) Ibuprofen Tablet (Motrin Tablet) (04/20/22 20:15) Vital Signs/I&O 04/20/22 19:42 Temp 36.4 Pulse 87 Resp 16 B/P (MAP) 131/91 (104) Pulse Ox 96 O2 Delivery Room Air Departure Impression Primary Impression: Abscess of tragus of left ear Disposition: 01 HOME, SELF-CARE Condition: Stable Departure-Patient Inst. Decision time for Depature: 20:10 Referrals: NO,LOCAL PHYSICIAN (PCP/Family) Primary Care Physician Patient Instructions: Abscess Incision and Drainage (DC) Add. Discharge Instructions: Take antibiotic as prescribed. Tylenol and motrin as needed. Follow up with PCP in 2-3 days for recheck. Follow up with any new/worsening concerns. All discharge instructions reviewed with patient and/or family. Voiced understanding. Scripts Cephalexin (Cephalexin) 500 Mg Tablet 500 MG PO TID for 10 Days, #30 TAB Prov: JOANN PIÑA APRN 04/20/22 JOANN PIÑA APRN Apr 20, 2022 19:48
[2022-04-20] MEDS ORDERED: CEPH500T PO (20:14)
[2022-04-20] MEDS ORDERED: LIDOCAINE 1% INJ 20 ML VIAL INJ ONE (20:15)
[2022-04-20] MEDS ORDERED: IBUPROFEN 800 MG (MOTRIN) TAB PO ONE (20:15)
[2022-04-20] MEDS ORDERED: cefTRIAXone 1,000 MG VIAL IM ONE (20:15)
[2022-04-20] MEDS ORDERED: ACETAMINOPHEN 325 MG TABLET PO ONE (20:15)
== END 2022-04-20 20:35 | disposition home or self-care (01) ==
LOC: EDUNIT# 19:39 → ER 19:42
DX: H60.02 Abscess of left external ear (principal); Z28.310 Unvaccinated for COVID-19
CPT/HCPCS: 99284